=== PATIENT | female | born 1975 | race Caucasian/White ===

== ENCOUNTER 2021-03-02 18:16 | Emergency (ER) | payer OTHER ==
[~2021-03-02] VITALS: Ht 170.2 cm; Wt 101.0 kg
[2021-03-02 18:55] VITALS: BP 138/94
--- NOTE | 2021-03-02 20:17 | NUR ---
PT DENIES ANY CP, DENIES DIFFICULTY BREATHING. C/O HEADACHE, SINUS CONGESTION, FATIGUE
== END 2021-03-02 20:43 | disposition home or self-care (01) ==
LOC: ED 20:35
DX: B34.9 Viral infection, unspecified (principal); E78.00 Pure hypercholesterolemia, unspecified; Z23 Encounter for immunization
CPT/HCPCS: 99281

== ENCOUNTER 2021-03-05 10:08 | Emergency (ER) | payer OTHER ==
[~2021-03-05] VITALS: Ht 167.6 cm; Wt 101.7 kg
[2021-03-05] MEDS ORDERED: FILTER 0.22 MICRON IV ONE (11:00)
[2021-03-05] MEDS ORDERED: CASIRIVIMAB 600 MG, IMDEVIMAB (REGN10987) 600 MG in SODIUM CHLORIDE 0.9% 250 ML IVPB ONE (11:00)
[2021-03-05 12:39] VITALS: BP 123/78
== END 2021-03-05 14:03 | disposition home or self-care (01) ==
LOC: ED 10:30
DX: U07.1 COVID-19 (principal); J06.9 Acute upper respiratory infection, unspecified; J02.9 Acute pharyngitis, unspecified; R51.9 Headache, unspecified; E11.9 Type 2 diabetes mellitus without complications; E78.00 Pure hypercholesterolemia, unspecified
CPT/HCPCS: 71045; 99283; M0243